=== PATIENT | female | born 1975 | race Caucasian/White ===

== ENCOUNTER 2020-09-06 13:31 | Emergency (ER) | payer MEDICAID ==
[~2020-09-06] VITALS: Ht 157.5 cm; Wt 63.0 kg
[2020-09-06 13:39] VITALS: BP 115/77
[2020-09-06] MEDS ORDERED: cefTRIAXone 1,000 MG in LIDOCAINE MPF 1% 2.1 ML IM ONE (14:15)
[2020-09-06] MEDS ORDERED: IBUP-2213 PO (14:16)
[2020-09-06] MEDS ORDERED: CEPH-588 PO (14:16)
[2020-09-06] MEDS ORDERED: NACL 0.9% 1,000 ML IV ONE (14:25)
[2020-09-06] MEDS ORDERED: cefTRIAXone 1,000 MG VIAL ONE (14:26)
[2020-09-06] MEDS ORDERED: LIDOCAINE MPF 1% 0 ML ONE (14:26)
[2020-09-06] MEDS ORDERED: KETOROLAC 30 MG/ML VIAL IVP ONE (15:10)
[2020-09-06 15:42] VITALS: BP 111/70
== END 2020-09-06 15:40 | disposition home or self-care (01) ==
LOC: MED 13:31
DX: N12 Tubulo-interstitial nephritis, not specified as acute or chronic (principal); Z79.899 Other long term (current) drug therapy
CPT/HCPCS: 81002; 81025; 96361; 96365; 96375; 99284; J0696; J1885; J7030; U0003; J2001